=== PATIENT | female | born 1970 | race Caucasian/White ===

== ENCOUNTER 2019-05-31 12:43 | Emergency (ER) | payer OTHER, SELFPAY ==
[2019-05-31 12:45] VITALS: BP 92/61; PULSE 82; RESP 13; TEMP 36.8; O2SAT 99; BMI 22.3
[2019-05-31 12:48] VITALS: O2SAT 100
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
[2019-05-31] MEDS: 0.9% Normal Saline 1,000 ML 150 ML IV (13:01)
[2019-05-31 13:08] LABS: Absolute Lymphocyte Count 1.79 X10^3/uL (0.83-4.51); Absolute Neutrophil Count 3.4 X10^3/uL (2.0-7.7); Basophil# 0.03 X10^3/uL; Basophil% 0.5 % (0-1); Eosinophil# 0.25 X10^3/uL; Eosinophils% 4.2 % (0-5); Hematocrit 36.2 % (37-47); Hemoglobin 11.9 g/dL (12.0-15.0); Lymphocyte # 1.79 X10^3/ul (4.0); Lymphocyte % 29.8 % (19-41); Mean Corp Hgb Conc 32.9 g/dL (32-36); Mean Corpuscular Hgb 31.2 pg (27.0-32.0); Mean Platelet Vol. 9.6 fl (6.2-12.0); Monocyte# 0.51 X10^3/uL; Monocyte% 8.5 % (0-10); NRBC Flagged by Analyzer 0 % (0-5); Neutrophil # 3.41 X10^3/uL (2.7-7.7); Neutrophil % 56.8 % (47-70); Platelet Count 322 K/mm3 (150-450); RBC Distribution Width CV 13.8 % (11.6-14.6); RBC Distribution Width SD 48.6 fl (35.1-43.9); Red Blood Count 3.81 M/mm3 (4.2-5.4)
[2019-05-31 13:20] LABS: ALB/GLOB Ratio 1.4 RATIO (0.9-2.4); AST(SGOT) 9 U/L (15-37); Alanine Aminotransfer ALT/SGPT 13 U/L (13-56); Albumin, Serum 4.2 g/dL (3.2-5.0); Alkaline Phosphatase 46 U/L (45-117); Anion Gap 5 (5-15); BUN 14 mg/dL (7-18); BUN/Creat Ratio 14.5 RATIO (10-20); Calcium,Total 8.6 mg/dL (8.5-10.1); Chloride 111 mmol/L (98-107); Creatinine, Serum 0.96 mg/dL (0.55-1.02); EST Glomerular Filtration Rate 66 mL/min (>60); Est Glom Filt Rate - Afr Amer 80 mL/min (>60); Estimated Creatinine Clearance 62.56 ml/min; Globulin 3.1 g/dL (2.2-4.2); Glucose 91 mg/dL (74-106); Protein, Total 7.3 g/dL (6.4-8.2); Sodium Level 138 mmol/L (136-145)
[2019-05-31 13:24] LABS: Internal QC Validated? YES +Cl - CLEAR BKGD
[2019-05-31 13:25] LABS: Pregnancy, Serum, hCG Quali. NEGATIVE Negative
[2019-05-31 13:54] VITALS: BP 133/63; PULSE 96; RESP 15; O2SAT 99
[2019-05-31 14:43] VITALS: BP 99/62; PULSE 71; RESP 15; O2SAT 99
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
[2019-05-31] MEDS: Acetaminophen 325 MG Tablet 650 MG PO (15:40)
[2019-05-31] MEDS: Diphth,Pertuss(Acell),Tet Vac 0.5 ML Vial IM (15:41)
[2019-05-31 16:15] VITALS: BP 102/89; PULSE 89; RESP 15; O2SAT 98
== END 2019-05-31 16:20 | disposition home or self-care (01) ==
LOC: ED 13:40
PROVIDERS: Emergency Provider Emergency Medicine; Family Provider Physician Assistant; PCP Physician Assistant
DX: S01.412A Laceration without foreign body of left cheek and temporomandibular area, initial encounter (principal); S01.312A Laceration without foreign body of left ear, initial encounter; S16.1XXA Strain of muscle, fascia and tendon at neck level, initial encounter; S20.212A Contusion of left front wall of thorax, initial encounter; V29.59XA Motorcycle passenger injured in collision with other motor vehicles in traffic accident, initial encounter; Y93.9 Activity, unspecified; Y92.9 Unspecified place or not applicable
CPT/HCPCS: 12013; 70450; 71260; 72125; 74177; 80053; 84703; 85025; 90715; 96360; 96361; 99285; J7030; Q9967; A4216